=== PATIENT | female | born 1980 ===

== ENCOUNTER 2022-11-24 08:35 | Outpatient (AMB) | payer BC, SELFPAY ==
--- NOTE | 2022-11-24 08:37 | MHC.OFFWIV ---
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 Patient complaining of urinary symptoms including urinary frequency x5 days as well as dysuria x1 day. She denies hematuria. She denies any fevers or chills. She denies any back or flank pain. She denies any abdominal pain or nausea/vomiting/diarrhea. She is otherwise feeling well. [facility] Social History Patient Tobacco Use Status: Never used Tobacco Review of Systems Const All systems reviewed & are unremarkable except as noted in HPI and below Reports no additional complaints Eyes Reports no additional complaints ENT Reports no additional complaints Card Reports no additional complaints Resp Reports no additional complaints GI Reports no additional complaints Reports no additional complaints and Reports as per HPI Musc Reports no additional complaints Skin/Breast Reports system reviewed and no additional complaints, except as documented Neuro Reports no additional complaints Psych Reports no additional complaints Endo Reports no additional complaints Chuck/Lymph Reports no additional complaints Aller/Immun Reports no additional complaints Physical Exam Vital Signs: Last Vital Signs Temp 97.6 F 11/24/22 08:45 Pulse 72 11/24/22 08:45 BP 122/70 11/24/22 08:45 Pulse Ox 96 11/24/22 08:45 BMI result Body Mass Index 44.9 Const General: cooperative, healthy appearing, no acute distress and well developed Orientation/consciousness: patient oriented x3 HEENT Head: Yes normal to inspection Ears: hearing grossly normal bilaterally General nose exam: Normal external nose present Face and sinus: Yes normal facial exam Mouth: Normal oral and palatal mucosa present Eyes General: appearance normal, both eyes and all related structures Pupils: Equal, round and reactive pupils present EOM: EOMs intact bilaterally Resp Effort & Inspection: normal respiratory effort and no respiratory distress Auscultation: clear to auscultation bilaterally Cardio Rate: regular rate Rhythm: regular rhythm Heart sounds: no gallops, no murmurs and no rubs Peripheral pulses: Peripheral pulses 2+ throughout GI Inspection: No distended Palpation (GI): Soft to palpation and nontender Auscultation: normal bowel sounds General: Yes no CVA tenderness Back/Spine/Pelvis Back: no CVA tenderness Skin General skin exam: no rashes or lesions noted Neuro General: patient oriented x3 Cranial nerves: Yes CN's II-XII intact bilaterally and Yes Equal, round and reactive pupils present Gait exam (Neuro): Normal gait present Motor exam (neuro): 5/5 motor strength present throughout Extrem General: Yes normal to inspection, Yes full ROM and Yes no clubbing, cyanosis or edema Psych Appearance: grossly normal Mental Status: mental status grossly normal Assessment & Plan Assessment & Plan (1) UTI (urinary tract infection): Code(s): N39.0 - Urinary tract infection, site not specified Plan This is a 42-year-old female presenting to the office today complaining of dysuria and increased urinary frequency. Urine dipstick shows positive leukocytes. Patient is hemodynamically stable without fevers or tachycardia. No CVA tenderness to suggest pyelonephritis. History and physical most consistent with acute uncomplicated urinary tract infection. Patient sent home on PO cephalexin 500 mg 4 times daily x5 days. Recommended symptomatic management including rest, increased fluids, and ibuprofen/acetaminophen as needed for pain. Patient instructed to follow up your go directly to the emergency room for worsening symptoms or if she were to develop fever/chills, flank pain, or hematuria. Patient verbalizes her understanding and she is in agreement with the plan. Medications: New cephalexin 500 mg PO QID 20 caps 0RF Coding Level of Care Code New Pt Level 3 (50215) Diagnoses UTI (urinary tract infection) N39.0
[2022-11-24 08:45] VITALS: BP 122/70; PULSE 72; TEMP 36.4; O2SAT 96; BMI 44.9
== END 2022-11-24 09:09 | disposition home or self-care (01) ==
PROVIDERS: Visit Provider Physician Assistant Medical
DX: N39.0 Urinary tract infection, site not specified (principal); R30.0 Dysuria
CPT/HCPCS: 81003; 99203